=== PATIENT | male | born 1965 | race Two or more races ===

== ENCOUNTER 2018-04-09 07:19 | Outpatient (CLI) | payer OTHER | END 2018-04-09 07:29 | disposition home or self-care (01) | LOC: SONOGRAMA 07:19 | DX: K85.90 Acute pancreatitis without necrosis or infection, unspecified (principal); Z86.718 Personal history of other venous thrombosis and embolism; N18.2 Chronic kidney disease, stage 2 (mild); K43.9 Ventral hernia without obstruction or gangrene; Z94.0 Kidney transplant status; I10 Essential (primary) hypertension; E78.4 Other hyperlipidemia; Z98.890 Other specified postprocedural states ==

== ENCOUNTER 2024-05-12 12:53 | Outpatient (CLI) | payer OTHER | END 2024-05-12 13:07 | disposition home or self-care (01) | LOC: TOM 12:53 | PROVIDERS: ATTEND Internal Medicine Pulmonary Disease | DX: C90.00 Multiple myeloma not having achieved remission (principal); Z94.0 Kidney transplant status; Z94.81 Bone marrow transplant status; I34.9 Nonrheumatic mitral valve disorder, unspecified; R91.8 Other nonspecific abnormal finding of lung field ==

== ENCOUNTER 2024-05-27 07:45 | Outpatient (CLI) | payer OTHER | END 2024-05-27 07:55 | disposition home or self-care (01) | LOC: SONOGRAMA 07:45 | PROVIDERS: ATTEND Internal Medicine Nephrology | DX: R10.84 Generalized abdominal pain (principal) ==